=== PATIENT | female | born 1995 | race Caucasian/White ===

== ENCOUNTER 2016-10-05 14:32 | Outpatient (CLI) | payer OTHER ==
[~2016-10-05] VITALS: Ht 157.5 cm; Wt 81.6 kg
[~2016-10-05 14:32] MED LIST: FERR134T PO; PRENAT PO
[2016-10-05 15:03] VITALS: Ht 157.5 cm; Wt 81.6 kg
[2016-10-05 15:04] VITALS: BP 120/75; PULSE 89; RESP 18
--- NOTE | 2016-10-05 15:58 | RADRPT ---
PROCEDURE: US OB CLINICAL INDICATION: LABOR TECHNIQUE: Multiple sonographic images of the pelvis were obtained. The images were reviewed on a PACS workstation. COMPARISON: Obstetrical ultrasound from 08/18/2016 FINDINGS: The cervix is not well visualized. There is a single viable intrauterine gestation. Cardiac activity is present with 143 beats per minute. There is a 143 presentation. The placenta is anterior. There is no evidence for an abruption or placenta previa. There is a subjectively normal amount of amniotic fluid. Measurements were made in order to determine age. The results are as follows (cm): AC =34.6 FL =7.4 Estimated gestational age by ultrasound of approximately 38 weeks, 0 days. The estimated date of delivery by ultrasound is 10/19/2016. Reported gestational age by LMP of approximately 40 weeks, 0 days. The reported date of delivery by LMP is 10/05/2016. EFW = 3450 grams (35th percentile) IMPRESSION: Single viable intrauterine gestation of approximately 38 weeks, 0 days . The estimated date of delivery is 10/19/2016 . Dating by ultrasound is within 2 weeks of dating by LMP. Estimated weight is 3450 grams which is in the 35th percentile. RPTAT: EE Physician Mauricio Date Time Electronically viewed and signed by Physician Mauricio on 10/05/2016 15:58 /
--- NOTE | 2016-10-05 16:10 | RADRPT ---
PROCEDURE: US biophysical profile. CLINICAL INDICATION: Decreased motion. Contractions. TECHNIQUE: Multiple sonographic images of the uterus were obtained. The images were revi ewed on a PACS workstation. COMPARISON: 08/18/2016. FINDINGS: There is a single live intrauterine gestation. heart rate is 143 beats per minute. The position is cephalic. The placenta is anterior grade III with no abruption or previa. The TREMAINE is 10.0 cm. (Normal = 5-20 cm.) Breathing Movement: 2 Gross Body Movement: 2 Tone: 2 Qualitative Amniotic Fluid Volume: 2 TOTAL: 8 IMPRESSION: 1. The biophysical score is 8/8. RPTAT: QQ .Jack Valle MD, MD Date Time Electronically viewed and signed by .Jack Valle MD, on 10/05/2016 16:10 .R/
--- NOTE | 2016-10-05 17:00 | QN ---
Documentation Comment 21 years old with IUP at 40 weeks with care with Dr. Sullivan was sent from the office today with complaint of contractions and r/p SROM. Reports had some small amounts of leaking of fluids had this afternoon. Denies any vaginal bleeding or decreased movement, GA: A&O, NAD Abdomen: Soft, non tender, gravid Fundal height appropriate for GA NST: Cat 1 Contractions initially every 4-6 min and spaced out. SSE: negative pooling, Negative Nitrazine, Negative ROM BPP: 8./8 TREMAINE: 10 cm SVE: closed/ Long/ High Assessment: 1- IUP at 40 weeks False labor, resolved No evidence of PROM testing: Reassuring, NST Cat 1 , BPP reassuring 88 TREMAINE: normal DC home Strict FKC and labor precaution discussed with the patient Follow up in 3-4 days with her OB clinic Patient verbalized understanding all above instructions CLAIR KAY MD Oct 05, 2016 17:00
--- NOTE | 2016-10-05 17:12 | TRIAGE ---
OB Triage Datetime Report Generated by CPN: 10/05/2016 17:12 Datetime: 10/05/2016 16:42 Time of Arrival: 10/05/2016 14:00 EGA: 40.0 Arrived By: Ambulatory Arrived From: Office Chief Complaint: R/O SROM Movement: Present Contractions: 0 Rupture of Membranes: Unsure Vaginal Bleeding: None Vaginal Discharge: Denies Recent Sexual Intercouse: Denies Abdominal Trauma: Not Applicable Patient Complaints: None Time Provider Notified: 10/05/2016 14:45 Provider Notified: DELSHAD Datetime: 10/05/2016 16:24 Stage of : OB Triage Datetime: 10/05/2016 16:18 Labor Evaluation Frequency: 8-10 Monitor Mode: External Duration (sec)2399: 50-70 Quality: Mild Pattern: Normal: <= 5 Contractions in 10 Minutes Resting Tone [place]: Relaxed Heart Rate FHR Baseline Rate: 135 Monitor Mode: External US Variability: Moderate 6-25 bpm Accelerations: 10X10 Decelerations: None Category: Category I Pain Assessment Pain Scale: 5 Pain Presence: Intermittent Pain Type: Cramping Pain Goal: 3 Pain Relief Measures: Comfort Measures Datetime: 10/05/2016 15:33 Comments: U/S IS @ BEDSIDE Datetime: 10/05/2016 15:12 Maternal Assessment Level of Consciousness: Fully Conscious DTR's/Clonus: DTRs 2+; No Clonus Headache: Denies Blurred Vision: No Respiratory Effort: Unlabored Breath Sounds, Left: Clear and Equal Breath Sounds, Right: Clear and Equal Nausea/Vomiting: Denies RUQ Epigastric Pain: Denies Facial Edema: None Labor Evaluation Frequency: X3 Monitor Mode: External Duration (sec)2399: 60-70 Quality: Mild Pattern: Normal: <= 5 Contractions in 10 Minutes Resting Tone [place]: Relaxed Interventions: Side to Side Heart Rate FHR Baseline Rate: 125 Monitor Mode: External US FHR Baseline Changes: No Baseline Change Variability: Moderate 6-25 bpm Accelerations: 15X15 Decelerations: None Category: Category I Pain Assessment Pain Scale: 0 Pain Presence: None/Denies Pain Type: N/A Pain Goal: 0 Pain Relief Measures: Comfort Measures Vaginal Exam Membrane Status: Intact Datetime: 08/18/2016 14:07 Arrived From: Dr. Office Movement: Present Contractions: Denies/Absent Rupture of Membranes: Unsure Vaginal Bleeding: None Vaginal Discharge: Denies Recent Sexual Intercouse: Denies Abdominal Trauma: Not Applicable Patient Complaints: Other Datetime: 08/18/2016 13:52 Labor Evaluation Frequency: 6/HR Monitor Mode: External Duration (sec)2399: 50-100 Quality: Mild Pattern: Normal: <= 5 Contractions in 10 Minutes Resting Tone [place]: Relaxed Heart Rate FHR Baseline Rate: 125 Monitor Mode: External US FHR Baseline Changes: No Baseline Change Variability: Moderate 6-25 bpm Accelerations: 15X15 Decelerations: None Category: Category I Datetime: 08/18/2016 12:55 Labor Evaluation Frequency: 2/30MIN Monitor Mode: External Duration (sec)2399: 40-70 Quality: Mild Pattern: Normal: <= 5 Contractions in 10 Minutes Resting Tone [place]: Relaxed Heart Rate FHR Baseline Rate: 135 Monitor Mode: External US Variability: Moderate 6-25 bpm Accelerations: 15X15 Decelerations: None Category: Category I Datetime: 08/18/2016 12:41 EGA: 33.1 Datetime: 08/18/2016 12:29 Assessment Type: Admission Assessment Maternal Assessment Level of Consciousness: Fully Conscious DTR's/Clonus: DTRs 2+; No Clonus Headache: Denies Blurred Vision: No Respiratory Effort: Unlabored; Regular Rhythm; Equal Expansion Breath Sounds, Left: Clear and Equal Breath Sounds, Right: Clear and Equal Nausea/Vomiting: Denies RUQ Epigastric Pain: Denies Lower Extremities Edema: None Degree: None Upper Extremities Edema: None Degree: None Facial Edema: None Fall Risk Assessment History of Falling: (0) No Secondary Diagnosis: (0) No Ambulatory Aid: (0) Bedrest/Nurse Assist IV Therapy: (0) No Gait: (0) Normal/Bedrest/Immobile Mental Status: (0) Oriented to Own Ability Fall Score: 0 Fall Risk Score Definition: No Risk: No action required Datetime: 08/18/2016 12:27 EGA: 32.2 Datetime: 08/18/2016 12:26 Time of Arrival: 08/18/2016 11:58 Arrived By: Wheelchair Arrived From: Emergency Dept Chief Complaint: DFM Movement: Decreased Contractions: Denies/Absent Rupture of Membranes: Denies Vaginal Bleeding: None Vaginal Discharge: Denies Recent Sexual Intercouse: Denies Abdominal Trauma: Not Applicable Patient Complaints: Other Time Provider Notified: 08/18/2016 12:10 Provider Notified: DR GANT Initial Plan: NST, BPP, EFW, CERVICAL LENGHT AND UA
== END 2016-10-05 16:30 | disposition home or self-care (01) ==
LOC: L-D 14:32 → OBT 14:32
PROVIDERS: ATTEND Obstetrics & Gynecology
DX: O47.1 False labor at or after 37 completed weeks of gestation (principal); O62.9 Abnormality of forces of labor, unspecified; O26.893 Other specified pregnancy related conditions, third trimester; Z3A.40 40 weeks gestation of pregnancy
CPT/HCPCS: 76815; 76818; Z7500; G0463

== ENCOUNTER 2016-10-07 18:40 | Inpatient (IN) | payer OTHER ==
[~2016-10-07] VITALS: Ht 157.5 cm; Wt 81.5 kg
[2016-10-07 18:52] VITALS: Ht 157.5 cm; Wt 81.5 kg
[2016-10-07 18:53] VITALS: BP 132/81; PULSE 99; RESP 18
--- NOTE | 2016-10-07 19:22 | RADRPT ---
PROCEDURE: US OB biophysical profile. CLINICAL INDICATION: evaluation TECHNIQUE: Multiple sonographic images of the pelvis were obtained. The images were reviewed on a PACS workstation. COMPARISON: Obstetrical ultrasound from 10/05/2016 FINDINGS: There is a single viable intrauterine gestation. Cardiac activity is present with 0.43 beats per mi nute. There is a vertex presentation. The placenta is anterior. There is no evidence of placental abruption. There is a normal amount of amniotic fluid with an TREMAINE = 10.0 cm. Biophysical profile: movement 2/2 tone 2/2. breathing 2/2 TREMAINE 2/2 Total 04/18 RPTAT: AA . IMPRESSION: Normal biophysical profile. Normal TREMAINE. Physician Mauricio Date Time Electronically viewed and signed by Physician Mauricio on 10/07/2016 19:22 /
[2016-10-07] MEDS ORDERED: LACTATED RINGER'S 1,000 ML IV PRN (20:24)
[2016-10-07] MEDS ORDERED: IBUPROFEN 600 MG TAB PO PRN (20:30)
[2016-10-07] MEDS ORDERED: CARBOPROST 250 MCG INJ IM PRN (20:30)
[2016-10-07] MEDS ORDERED: OXYTOCIN 30 UNITS/LR 500 ML IV PRN (20:30)
[2016-10-07] MEDS ORDERED: MISOPROSTOL 200 MCG TAB PR PRN (20:30)
[2016-10-07] MEDS ORDERED: ACETAMINOPHEN/CODEINE #3 TAB PO PRN (20:30)
[2016-10-07] MEDS ORDERED: LIDOCAINE 1% (MPF) 30 ML INJ INJ PRN (20:30)
[2016-10-07] MEDS ORDERED: METHYLERGONOVINE 0.2 MG INJ IM PRN (20:30)
[2016-10-07] MEDS ORDERED: BUTORPHANOL 2 MG INJ IV PRN ×2 (20:30)
[2016-10-07] MEDS: LACTATED RINGER'S 1,000 ML IV SCH (20:47)
--- NOTE | 2016-10-07 21:15 | TRIAGE ---
OB Triage Datetime Report Generated by CPN: 10/07/2016 21:15 Datetime: 10/07/2016 20:00 Labor Evaluation Frequency: 7-8 Monitor Mode: External Duration (sec)2399: 80 Quality: Mild Pattern: Normal: <= 5 Contractions in 10 Minutes Resting Tone [place]: Relaxed Heart Rate FHR Baseline Rate: 135 Monitor Mode: External US FHR Baseline Changes: No Baseline Change Variability: Moderate 6-25 bpm Accelerations: 15X15 Decelerations: None Category: Category I Datetime: 10/07/2016 19:10 Assessment Type: Admission Assessment Maternal Assessment Level of Consciousness: Fully Conscious DTR's/Clonus: DTRs 2+; No Clonus Headache: Denies Blurred Vision: No Respiratory Effort: Unlabored; Regular Rhythm; Equal Expansion Breath Sounds, Left: Clear and Equal Breath Sounds, Right: Clear and Equal Nausea/Vomiting: Denies RUQ Epigastric Pain: Denies Lower Extremities Edema: None Degree: None Upper Extremities Edema: None Degree: None Facial Edema: None Fall Risk Assessment History of Falling: (0) No Secondary Diagnosis: (0) No Ambulatory Aid: (0) Bedrest/Nurse Assist IV Therapy: (0) No Gait: (0) Normal/Bedrest/Immobile Mental Status: (0) Oriented to Own Ability Fall Score: 0 Fall Risk Score Definition: No Risk: No action required Datetime: 10/07/2016 18:56 Assessment Type: Admission Assessment Maternal Assessment Level of Consciousness: Fully Conscious DTR's/Clonus: DTRs 2+; No Clonus Headache: Denies Blurred Vision: No Respiratory Effort: Unlabored; Regular Rhythm; Equal Expansion Breath Sounds, Left: Clear and Equal Breath Sounds, Right: Clear and Equal Nausea/Vomiting: Denies RUQ Epigastric Pain: Denies Lower Extremities Edema: None Degree: None Upper Extremities Edema: None Degree: None Facial Edema: None Fall Risk Assessment History of Falling: (0) No Secondary Diagnosis: (0) No Ambulatory Aid: (0) Bedrest/Nurse Assist IV Therapy: (0) No Gait: (0) Normal/Bedrest/Immobile Mental Status: (0) Oriented to Own Ability Fall Score: 0 Fall Risk Score Definition: No Risk: No action required Datetime: 10/07/2016 18:55 Time of Arrival: 10/07/2016 18:36 EGA: 40.2 Arrived By: Ambulatory Arrived From: Home Chief Complaint: POST DATES Movement: Present Contractions: Denies/Absent Rupture of Membranes: Denies Vaginal Bleeding: None Vaginal Discharge: Denies Recent Sexual Intercouse: Denies Abdominal Trauma: Not Applicable Patient Complaints: Other Time Provider Notified: 10/07/2016 20:08 Provider Notified: DR GANT Initial Plan: NST, BPP WITH TREMAINE Datetime: 10/05/2016 16:42 EGA: 40.0 Datetime: 08/18/2016 12:41 EGA: 33.1 Datetime: 08/18/2016 12:29 Fall Score: 0 Fall Risk Score Definition: No Risk: No action required Datetime: 08/18/2016 12:27 EGA: 32.2
[2016-10-07 21:36] LABS: ALBUMIN 3.4 g/dl (3.3-4.9); INR 1.24; POTASSIUM 3.3 mmol/L (3.5-5.1); PROTIME 15.7 Sec (12.2-14.2); PT RATIO 1.2
[2016-10-07 21:37] LABS: BASOPHILS % 0.2 % (0.0-2.0); EOSINOPHILS # 0.2 10^3/ul (0.0-0.5); EOSINOPHILS % 1.6 % (0.0-7.0); HEMATOCRIT 33.9 % (37.0-47.0); LYMPHOCYTES # 2.2 10^3/ul (0.8-2.9); LYMPHOCYTES % 18.4 % (18.0-55.0); MEAN CORPUSCULAR HEMOGLOBIN 30.1 pg (29.0-33.0); MEAN CORPUSCULAR HGB CONC 35.3 g/dl (32.0-37.0); MEAN CORPUSCULAR VOLUME 85.2 fl (72.0-104.0); MEAN PLATELET VOLUME 9.2 fl (7.4-10.4); MONOCYTES % 8.1 % (0.0-13.0); NEUTROPHIL # 8.8 10^3/ul (1.6-7.5); NEUTROPHILS % 71.7 % (30.0-74.0); PARTIAL THROMBOPLASTIN TIME 28.5 Sec (25.0-35.0); PLATELET COUNT 269 10^3/UL (140-440); RED BLOOD COUNT 3.98 10^6/ul (4.20-5.40); RED CELL DISTRIBUTION WIDTH 15.3 % (11.5-14.5); UNCORRECTED WBC 12.2 10^3/ul (4.8-10.8); WHITE BLOOD COUNT 12.2 10^3/ul (4.8-10.8)
[2016-10-07 21:38] LABS: CREATININE 0.53 mg/dl (0.44-1.00)
[2016-10-07 21:39] LABS: BILIRUBIN,INDIRECT 0.2 mg/dl (0-1.1); BILIRUBIN,TOTAL 0.2 mg/dl (0.2-1.3); TOTAL PROTEIN 6.8 g/dl (6.1-8.1)
[2016-10-07 21:40] LABS: CALCIUM 9.5 mg/dl (8.4-10.2)
[2016-10-07 21:55] LABS: CONDITION 1; LH ANALYZER COMMENTS 1
[2016-10-07] MEDS: MISOPROSTOL 25 MCG CAPSULE PO SCH (22:22)
[2016-10-07] MEDS: CLINDAMYCIN 900 MG/D5W (PMX) 50 ML IV SCH (22:22)
[2016-10-08 00:56] LABS: ADD UMIC YES; URINE BILIRUBIN (Dip) NEGATIVE (NEGATIVE); URINE BLOOD (Dip) TRACE (NEGATIVE); URINE COLOR LT. YELLOW (YELLOW); URINE GLUCOSE (Dip) NEGATIVE (NEGATIVE); URINE KETONES (Dip) NEGATIVE (NEGATIVE); URINE LEUKOCYTE ESTERASE (Dip) NEGATIVE (NEGATIVE); URINE NITRITE (Dip) NEGATIVE (NEGATIVE); URINE TOTAL PROTEIN (Dip) NEGATIVE (NEGATIVE); URINE UROBILINOGEN (Dip) 0.2 E.U./dL (0.1-1.0)
[2016-10-08 01:04] LABS: BACTERIA,URINE OCCASIONAL; SQUAMOUS EPITHELIAL CELL,UR OCCASIONAL; URINE RBCS 0-2 /HPF (0)
[2016-10-08 01:16] LABS: BARBITURATES NEGATIVE (NEGATIVE); BENZODIAZEPINES NEGATIVE (NEGATIVE); CANNABINOIDS NEGATIVE (NEGATIVE); COCAINE NEGATIVE (NEGATIVE); OPIATES NEGATIVE (NEGATIVE)
[2016-10-08] MEDS: MISOPROSTOL 25 MCG CAPSULE PO SCH ×7 (02:13→21:00)
[2016-10-08] MEDS: LACTATED RINGER'S 1,000 ML IV SCH ×3 (02:48→18:31)
[2016-10-08] MEDS: CLINDAMYCIN 900 MG/D5W (PMX) 50 ML IV SCH ×3 (06:21→21:59)
[2016-10-08] MEDS ORDERED: ACETAMINOPHEN 500 MG TAB PO STA (16:28)
--- NOTE | 2016-10-08 16:34 | HP ---
Date/Time of Note Date/Time of Note DATE: 10/08/16 TIME: 16:31 OB - History Hx of Present Chief Complaint: Postdates Last Menstrual Period: Dec 30, 2015 Estimated Due Date: Oct 05, 2016 : 1 Para: 0 Spontaneous : 0 Therapeutic : 0 Care: Good Care Ultrasounds: Normal mid trimester US Obstetrical Complications: None Medical Complications: None Past Family/Social History * Past Medical, Surgical, Family and Obstetric Histories reviewed from chart. GBS Status: Positive OB Admission Exam Vital Signs Vital Signs Vital Signs Date Time Temp Pulse Resp B/P Pulse Ox O2 Delivery O2 Flow Rate FiO2 10/07/16 18:53 97.9 99 18 132/81 Room Air Physical Exam HEENT: WNL Heart: Rhythm Normal Lungs: Clear Abdomen: WNL Extremities: Normal Reflexes: Normal Cervical Dilatation: None Effacement: 25% Station: -3 Membranes: Intact Heart Rate: 140's Accelerations: Accelerations Present Decelerations: No Decelerations Varibility: Moderate Last 72 hours Lab Results CBC & BMP 10/07/16 20:47 Liver Function Test 10/07/16 20:47 Alanine Aminotransferase (ALT/SGPT) 21 Albumin 3.4 Alkaline Phosphatase 237 H Aspartate Amino Transf (AST/SGOT) 23 Direct Bilirubin 0.00 Total Protein 6.8 OB Assessment/Plan Reason for admission: induction of labor Induction Method: per Misoprostol Protocol JENNIFER GANT MD Oct 08, 2016 16:34
[2016-10-09] MEDS: OXYTOCIN 30 UNITS/LR 500 ML IV SCH ×2 (01:48→08:00)
[2016-10-09] MEDS: LACTATED RINGER'S 1,000 ML IV SCH (04:14)
[2016-10-09] MEDS ORDERED: FENTAnyl 2MCG/ML-ROPIV 0.2% 100 ML ONE (05:27)
[2016-10-09] MEDS ORDERED: FENTAnyl 2MCG/ML-ROPIV 0.2% 100 ML BAG EPI SCH (06:00)
[2016-10-09] MEDS ORDERED: ONDANSETRON 4 MG INJ IV PRN (06:00)
[2016-10-09] MEDS ORDERED: KETOROLAC 30 MG INJ IV PRN (06:00)
[2016-10-09] MEDS ORDERED: DIPHENHYDRAMINE 50 MG INJ IV PRN (06:00)
[2016-10-09] MEDS ORDERED: NALOXONE (0.4 MG/ML) INJ IV PRN (06:00)
[2016-10-09] MEDS ORDERED: morphine 2 MG INJ IV PRN ×2 (06:00)
[2016-10-09] MEDS ORDERED: HYDROmorphONE 1 MG/ML SYG IV PRN ×2 (06:00)
[2016-10-09] MEDS: CLINDAMYCIN 900 MG/D5W (PMX) 50 ML IV SCH (06:23)
--- NOTE | 2016-10-09 08:05 | LDN ---
Date/Time of Note Date/Time of Note DATE: 10/09/16 TIME: 08:02 Delivery Summary over intact perineum Placenta Delivered: Spontaneously Meconium: none Perineum intact?: No Perineal laceration: 1 Perineal laceration repair: Vaginal and first degree perineal repaired with 3-0 Vicryl. Anesthesia type: Epidural Estimated blood loss: 150 Sponge & Needle done & correct: Yes All needle counts correct: Yes Any foreign bodies felt in the: No Problems: Infant Delivery Information Sex Infant Sex: male Apgars 1 Minute: 3 5 Minute: 9 Suctioning Nose & mouth suctioned at yessi: Yes Delee suction performed: No Umbilical Cord Umbilical cord with: 3 Vessels Cord presentations: nuchal cord Nuchal cord present X: 1 Cord Blood was obtained: Yes Mother & Baby Disposition Disposition Mom & Baby to Maternity; Good: Yes JENNIFER GANT MD Oct 09, 2016 08:05
[2016-10-09] MEDS: LACTATED RINGER'S 1,000 ML IV* SCH ×2 (09:03→16:38)
[2016-10-09 09:25] VITALS: BP 131/84; PULSE 73; RESP 19
[2016-10-09] MEDS ORDERED: WITCH HAZEL/GLYCERIN PAD PR PRN (09:30)
[2016-10-09] MEDS ORDERED: OXYTOCIN 30 UNITS/LR 500 ML IV PRN (09:30)
[2016-10-09] MEDS ORDERED: METHYLERGONOVINE 0.2 MG INJ IM PRN (09:30)
[2016-10-09] MEDS ORDERED: BENZOCAINE 20% 56 ML SPRAY TOP PRN (09:30)
[2016-10-09] MEDS ORDERED: ACETAMINOPHEN 325 MG TAB PO PRN (09:30)
[2016-10-09] MEDS ORDERED: CARBOPROST 250 MCG INJ IM PRN (09:30)
[2016-10-09] MEDS ORDERED: ACETAMINOPHEN/CODEINE #3 TAB PO PRN (09:30)
[2016-10-09] MEDS ORDERED: DIBUCAINE 1% 30 GM OINT PR PRN (09:30)
[2016-10-09] MEDS ORDERED: MISOPROSTOL 200 MCG TAB PR PRN (09:30)
[2016-10-09 10:00] VITALS: BP 119/76; PULSE 68; RESP 20
[2016-10-09] MEDS: IBUPROFEN 600 MG TAB PO SCH ×3 (11:37→23:53)
[2016-10-09 12:00] VITALS: BP 117/68; PULSE 81; RESP 19
[2016-10-09 16:00] VITALS: BP 114/61; PULSE 72; RESP 20
[2016-10-09 19:40] VITALS: BP 117/72; PULSE 84; RESP 18
[2016-10-09] MEDS: SENNA/DOCUSATE NA (8.6MG/50MG) TAB PO SCH (20:43)
[2016-10-10] VITALS: BP 100/54; PULSE 83; RESP 18
[2016-10-10] MEDS: LACTATED RINGER'S 1,000 ML IV* SCH ×2 (01:03→07:30)
[2016-10-10 04:20] VITALS: BP 99/53; PULSE 73; RESP 18
[2016-10-10] MEDS: IBUPROFEN 600 MG TAB PO SCH ×3 (05:47→17:35)
[2016-10-10 07:51] LABS: BASOPHILS % 0.3 % (0.0-2.0); EOSINOPHILS # 0.2 10^3/ul (0.0-0.5); EOSINOPHILS % 1.6 % (0.0-7.0); HEMATOCRIT 29.9 % (37.0-47.0); HEMOGLOBIN 10.4 g/dl (12.0-16.0); LYMPHOCYTES # 2.6 10^3/ul (0.8-2.9); LYMPHOCYTES % 20.3 % (18.0-55.0); MEAN CORPUSCULAR HEMOGLOBIN 30.3 pg (29.0-33.0); MEAN CORPUSCULAR HGB CONC 34.9 g/dl (32.0-37.0); MEAN CORPUSCULAR VOLUME 86.7 fl (72.0-104.0); MEAN PLATELET VOLUME 8.9 fl (7.4-10.4); MONOCYTE # 1.1 10^3/ul (0.3-0.9); MONOCYTES % 8.8 % (0.0-13.0); NEUTROPHIL # 8.9 10^3/ul (1.6-7.5); PLATELET COUNT 213 10^3/UL (140-440); RED BLOOD COUNT 3.45 10^6/ul (4.20-5.40)
[2016-10-10 08:01] LABS: CONDITION 1; LH ANALYZER COMMENTS 1
[2016-10-10 08:35] VITALS: BP 120/74; PULSE 83; RESP 19
[2016-10-10] MEDS ORDERED: INFLUENZA VIRUS VACCINE 0.5 ML (DISPENSING) IM* ONE (09:00)
[2016-10-10] MEDS: SENNA/DOCUSATE NA (8.6MG/50MG) TAB PO SCH ×2 (09:49→20:43)
[2016-10-10 15:55] VITALS: BP 123/65; PULSE 89; RESP 20
[2016-10-10 19:30] VITALS: BP 134/74; PULSE 95; RESP 18
--- NOTE | 2016-10-10 20:43 | DS ---
Date/Time of Note Date/Time of Note DATE: 10/10/16 TIME: 20:42 Obstetrical Discharge Record Final Diagnosis Final Diagnosis: Term delivered Vaginal Delivery Obstetrical Delivery: Spontaneous, Laceration, Repaired Complications Augmentation: Yes Induction: Yes Condition on Discharge Physical Assessment Voiding: Yes Bowel Movement: Yes Breast: Soft, non-tender Fundus: Firm Calf Tenderness: No Patient Condition: Stable JENNIFER GANT MD Oct 10, 2016 20:43
[2016-10-11] MEDS: IBUPROFEN 600 MG TAB PO SCH ×3 (00:07→11:32)
[2016-10-11 04:15] VITALS: BP 122/60; RESP 18
[2016-10-11 08:20] VITALS: BP 124/86; PULSE 86; RESP 17
[2016-10-11] MEDS: SENNA/DOCUSATE NA (8.6MG/50MG) TAB PO SCH (09:00)
[2016-10-11] MEDS ORDERED: DIPHTH/TET/ACEL PERTUSS (ADULT) 0.5 ML VIAL IM* ONE (09:00)
== END 2016-10-11 13:10 | disposition home or self-care (01) | DRG 775 ==
LOC: OBT 18:40 → L-D 18:40 → OBT 20:08 → L-D 20:08 → PP1 10-09 09:22
PROVIDERS: ADMIT Obstetrics & Gynecology; ATTEND Obstetrics & Gynecology
PROC: 10E0XZZ Delivery of Products of Conception, External Approach (ICD-10-PCS; principal; 2016-10-09)
PROC: 3E00X4Z Introduction of Serum, Toxoid and Vaccine into Skin and Mucous Membranes, External Approach (ICD-10-PCS; 2016-10-11)
DX: O69.81X0 Labor and delivery complicated by cord around neck, without compression, not applicable or unspecified (principal); Z23 Encounter for immunization; Z3A.38 38 weeks gestation of pregnancy; Z37.0 Single live birth
CPT/HCPCS: 36415; 62319; 76818; 80053; 80307; 81001; 81003; 84560; 85025; 85384; 85610; 85730; 86592; 86900; 86901; 87340; 90686; 90715; G0463; J2590; J3010; J7120

== ENCOUNTER 2017-09-21 14:29 | Emergency (ER) | END 2017-09-21 21:29 | disposition home or self-care (01) ==